=== PATIENT | male | born 1985 | race Caucasian/White ===

== ENCOUNTER 2019-07-25 20:49 | Emergency (ER) | payer OTHER ==
[~2019-07-25] VITALS: Ht 175.3 cm; Wt 132.9 kg
[2019-07-25 20:56] VITALS: Ht 175.3 cm; Wt 132.9 kg
[2019-07-25 23:12] VITALS: BP 106/63
== END 2019-07-25 23:12 | disposition home or self-care (01) ==
LOC: ED 20:49
DX: M54.5 Low back pain (principal)
CPT/HCPCS: J1885